=== PATIENT | female | born 1940 | race Caucasian/White ===

== ENCOUNTER 2022-01-08 10:23 | Inpatient (IN) | payer MEDICARE ==
[~2022-01-08] VITALS: Ht 167.6 cm; Wt 56.7 kg
[2022-01-08] MEDS ORDERED: TETANUS, DIPHTHERIA, PERTUSSIS VAC/PF 0.5ML (>10YR OLD) IM ONE (11:00)
[2022-01-08 11:29] LABS: BG BASE EXCESS 0.3 mmol/L (-2.0-2.0); BG DEOXYHEMOGLOBIN 3.7 % (0.0-5.0); BG FRACTION INSPIRED OXYGEN 21; BG HCO3 ACT 23.4 mmol/L (22.0-26.0); BG METHEMOGLOBIN 0.3 % (0.0-1.5); BG OXYGEN SATURATION 96.3 % (92.0-98.5); BG PCO2 33.6 mmHg (35.0-45.0); BG PO2 73.4 mmHg (75.0-100.0); BG SAMPLE SITE LEFT BRACHIAL; BG TOTAL HEMOGLOBIN 15.7 g/dL (12.0-18.0); BG VENT MODE ROOM AIR
[2022-01-08 12:00] LABS: HEMATOCRIT. 45.7 % (36.0-48.0); HEMOGLOBIN. 15.4 g/dL (12.0-16.0); MEAN CORPUSCULAR HEMOGLOBIN 31.2 pg (28.0-32.0); MEAN CORPUSCULAR VOLUME 92.4 fL (81.0-99.0); MEAN PLATELET VOLUME 7.1 fl (7.4-10.4); PLATELET 215 x1000/uL (130-400); RED BLOOD CELL COUNT 4.95 mill/uL (4.2-5.4); RED CELL DISTRIBUTION WIDTH 13.2 % (11.6-14.6)
[2022-01-08 12:36] LABS: CHLORIDE 102 mEq/L (98-107)
[2022-01-08 12:57] LABS: CREATINE KINASE 816 IU/L (26-192); ETHANOL BLOOD < 10 mg/dL
[2022-01-08 14:04] LABS: PLATELET ESTIMATE NORMAL
[2022-01-08] MEDS ORDERED: FUROSEMIDE 40MG/4ML VIAL IVP NR (14:30)
[2022-01-08] MEDS ORDERED: ASPIRIN 325MG EC TABLET PO NR (14:30)
[2022-01-08 20:00] VITALS: BP 106/61
[2022-01-08] MEDS ORDERED: HYDROCODONE/ACETAMINOPHEN 5/325MG TABLET PO PRN (20:00)
[2022-01-08] MEDS ORDERED: MORPHINE SULFATE 2 MG/ML CPJ (NOT FOR IM USE) IV PRN (20:00)
[2022-01-08] MEDS ORDERED: MAGNESIUM/ALUMINUM HYDROXIDE/SIMETHICONE 30ML UDC PO PRN (20:00)
[2022-01-08] MEDS ORDERED: ACETAMINOPHEN 325MG TABLET PO PRN ×2 (20:00)
[2022-01-08] MEDS ORDERED: CLONIDINE 0.1MG TABLET PO PRN (20:00)
[2022-01-08] MEDS ORDERED: IPRATROPIUM/ALBUTEROL 0.5-3(2.5)MG/3ML NEB HHN PRN (20:00)
[2022-01-08] MEDS ORDERED: GUAIFENESIN 200MG/10ML SUGAR FREE UDC PO PRN (20:00)
[2022-01-08] MEDS ORDERED: ONDANSETRON HCL 4MG/2ML INJ IV PRN (20:00)
[2022-01-08] MEDS: PANTOPRAZOLE 40MG DR TABLET PO SCH (21:30)
[2022-01-08 23:06] VITALS: BP 106/61
[2022-01-09] VITALS: BP 118/77
[2022-01-09 04:00] VITALS: BP 134/52
[2022-01-09 06:41] LABS: CHLORIDE 98 mEq/L (98-107)
[2022-01-09 06:46] LABS: BASOPHILS % 0.4 % (0.0-2.0); EOSINOPHILS % 0.1 % (0.0-5.0); HEMATOCRIT. 46.8 % (36.0-48.0); HEMOGLOBIN. 15.8 g/dL (12.0-16.0); LYMPHOCYTES % 26.3 % (20.0-50.0); MEAN CORPUSCULAR HEMOGLOBIN 30.9 pg (28.0-32.0); MEAN CORPUSCULAR VOLUME 91.5 fL (81.0-99.0); MEAN PLATELET VOLUME 7.7 fl (7.4-10.4); MONOCYTES % 12.7 % (2.0-8.0); NEUTROPHILS % 60.5 % (40.0-76.0); PLATELET 232 x1000/uL (130-400); RED BLOOD CELL COUNT 5.11 mill/uL (4.2-5.4)
[2022-01-09] MEDS ORDERED: LACTULOSE 20G/30ML UDC PO SCH (08:45)
[2022-01-09] MEDS: PANTOPRAZOLE 40MG DR TABLET PO SCH (10:23)
[2022-01-09] MEDS: ENOXAPARIN 40MG/0.4ML SYR SUBCUT SCH (10:24)
[2022-01-09] MEDS: AMLODIPINE 2.5MG TABLET PO SCH (11:00)
[2022-01-09 12:00] VITALS: BP 109/106
[2022-01-09] MEDS ORDERED: DEXT 5%/0.45% NACL 500ML 500 ML IV ONE (15:00)
[2022-01-09 16:00] VITALS: BP_SYST 101; BP_SYST 119; BP_SYST 93; BP_DIAS 45; BP_DIAS 50; BP_DIAS 62
[2022-01-09 20:38] VITALS: BP 139/88
[2022-01-09 20:45] LABS: CHLORIDE 97 mEq/L (98-107)
[2022-01-09] MEDS ORDERED: LACTULOSE 20G/30ML UDC PO PRN (21:00)
[2022-01-09] MEDS: ATORVASTATIN CALCIUM 20MG TABLET PO SCH (22:10)
[2022-01-10 00:13] VITALS: BP 140/59
[2022-01-10 04:00] VITALS: BP 131/66
[2022-01-10 06:35] LABS: BASOPHILS % 0.3 % (0.0-2.0); EOSINOPHILS % 0.6 % (0.0-5.0); HEMATOCRIT. 43.7 % (36.0-48.0); HEMOGLOBIN. 14.8 g/dL (12.0-16.0); LYMPHOCYTES % 26.9 % (20.0-50.0); MEAN CORPUSCULAR HEMOGLOBIN 30.8 pg (28.0-32.0); MEAN PLATELET VOLUME 7.7 fl (7.4-10.4); MONOCYTES % 11.9 % (2.0-8.0); NEUTROPHILS % 60.3 % (40.0-76.0); PLATELET 200 x1000/uL (130-400); RED CELL DISTRIBUTION WIDTH 13.2 % (11.6-14.6)
[2022-01-10] MEDS ORDERED: NALOXONE HCL 0.4MG/ML VIAL IV PRN (08:15)
[2022-01-10] MEDS ORDERED: DEXTROSE 50% WATER 50ML SYRINGE IV PRN (08:30)
[2022-01-10] MEDS ORDERED: POTASSIUM CHLORIDE 20MEQ TABLET SR PO SCH (09:00)
[2022-01-10] MEDS: FAMOTIDINE 20MG TABLET PO SCH (09:15)
[2022-01-10] MEDS: ENOXAPARIN 40MG/0.4ML SYR SUBCUT SCH (09:15)
[2022-01-10] MEDS: AMLODIPINE 2.5MG TABLET PO SCH (09:16)
[2022-01-10] MEDS: SODIUM CHLORIDE 0.9% 1,000 ML IV SCH ×2 (09:21→20:57)
[2022-01-10 12:00] VITALS: BP 96/65
[2022-01-10] MEDS: BLOOD SUGAR DIAGNOSTIC STRIP TEST SCH ×2 (12:40→20:47)
[2022-01-10] MEDS: INSULIN LISPRO 100 UNITS/ML SUBCUT SCH ×2 (13:10→20:47)
[2022-01-10] MEDS: ASPIRIN 81MG EC TABLET PO SCH (15:02)
[2022-01-10 20:00] VITALS: BP 140/58
[2022-01-10] MEDS: ATORVASTATIN CALCIUM 20MG TABLET PO SCH (20:55)
[2022-01-10] MEDS ORDERED: LORAZEPAM 0.5MG TABLET PO NR (22:15)
[2022-01-11] VITALS (7 sets, daily range): BP systolic 137–172; BP diastolic 59–70
[2022-01-11 00:21] LABS: CLARITY URINE CLEAR (CLEAR); COLOR URINE YELLOW (YELLOW); KETONES URINE NEGATIVE (NEGATIVE); LEUKOCYTE ESTERASE URINE NEGATIVE (NEGATIVE); NITRITE URINE NEGATIVE (NEGATIVE); OCCULT BLOOD URINE NEGATIVE (NEGATIVE); PH URINE 5.5 (4.5-8.0); PROTEIN URINE NEGATIVE (NEGATIVE); SPECIFIC GRAVITY URINE 1.009 (1.005-1.030); UROBILINOGEN URINE 0.2 E.U./dL (0.2-1.0)
[2022-01-11 00:35] LABS: *AMPHETAMINES SCREEN URINE NEGATIVE (NEGATIVE); *BARBITURATES SCREEN URINE NEGATIVE (NEGATIVE); *BENZODIAZEPINES SCREEN URINE NEGATIVE (NEGATIVE); *COCAINE SCREEN URINE NEGATIVE (NEGATIVE); CANNABINOID URINE SCREEN NEGATIVE (NEGATIVE); METHADONE URINE SCREEN NEGATIVE (NEGATIVE); OPIATES URINE SCREEN NEGATIVE (NEGATIVE); PHENCYCLIDINE URINE SCREEN NEGATIVE (NEGATIVE)
[2022-01-11 05:40] LABS: BASOPHILS % 0.5 % (0.0-2.0); HEMATOCRIT. 44.1 % (36.0-48.0); HEMOGLOBIN. 15.3 g/dL (12.0-16.0); LYMPHOCYTES % 34.6 % (20.0-50.0); MEAN CORPUSCULAR HEMOGLOBIN 31.7 pg (28.0-32.0); MEAN CORPUSCULAR VOLUME 91.5 fL (81.0-99.0); MEAN PLATELET VOLUME 7.6 fl (7.4-10.4); MONOCYTES % 13.6 % (2.0-8.0); NEUTROPHILS % 50.3 % (40.0-76.0); PLATELET 203 x1000/uL (130-400); RED BLOOD CELL COUNT 4.83 mill/uL (4.2-5.4); RED CELL DISTRIBUTION WIDTH 13.5 % (11.6-14.6)
[2022-01-11] MEDS: BLOOD SUGAR DIAGNOSTIC STRIP TEST SCH ×4 (07:40→20:53)
[2022-01-11] MEDS: INSULIN LISPRO 100 UNITS/ML SUBCUT SCH ×4 (08:10→20:53)
[2022-01-11 08:57] LABS: CHLORIDE 102 mEq/L (98-107)
[2022-01-11] MEDS ORDERED: ASPIRIN 81MG TABLET PO SCH (09:00)
[2022-01-11] MEDS ORDERED: AMLODIPINE 2.5MG TABLET PO SCH (09:00)
[2022-01-11] MEDS: ENOXAPARIN 40MG/0.4ML SYR SUBCUT SCH (09:35)
[2022-01-11] MEDS: FAMOTIDINE 20MG TABLET PO SCH (09:36)
[2022-01-11] MEDS: ASPIRIN 81MG EC TABLET PO SCH (09:36)
[2022-01-11] MEDS: AMLODIPINE 2.5MG TABLET PO SCH (09:36)
[2022-01-11 12:59] LABS: VITAMIN B12 SERUM 231 pg/mL (211-911)
[2022-01-11] MEDS ORDERED: CYANOCOBALAMIN 1000MCG/ML VIAL IM NR (15:00)
[2022-01-11] MEDS: SODIUM CHLORIDE 0.9% 1,000 ML IV SCH (15:23)
[2022-01-11] MEDS ORDERED: POTASSIUM CHLORIDE 20MEQ TABLET SR PO NR (15:45)
[2022-01-11] MEDS: ATORVASTATIN CALCIUM 20MG TABLET PO SCH (20:53)
[2022-01-12] VITALS: BP 151/80
[2022-01-12] MEDS: SODIUM CHLORIDE 0.9% 1,000 ML IV SCH ×2 (00:15→13:35)
[2022-01-12 04:00] VITALS: BP 135/58
[2022-01-12 07:31] LABS: BASOPHILS % 0.7 % (0.0-2.0); EOSINOPHILS % 2.7 % (0.0-5.0); HEMATOCRIT. 39.5 % (36.0-48.0); HEMOGLOBIN. 13.4 g/dL (12.0-16.0); LYMPHOCYTES % 45.2 % (20.0-50.0); MEAN CORPUSCULAR VOLUME 91.6 fL (81.0-99.0); MONOCYTES % 12.2 % (2.0-8.0); NEUTROPHILS % 39.2 % (40.0-76.0); PLATELET 197 x1000/uL (130-400); RED BLOOD CELL COUNT 4.31 mill/uL (4.2-5.4)
[2022-01-12 07:40] LABS: CHLORIDE 107 mEq/L (98-107)
[2022-01-12] MEDS: BLOOD SUGAR DIAGNOSTIC STRIP TEST SCH ×2 (07:40→13:30)
[2022-01-12 08:00] VITALS: BP 157/63
[2022-01-12] MEDS: INSULIN LISPRO 100 UNITS/ML SUBCUT SCH ×2 (08:10→13:10)
[2022-01-12] MEDS ORDERED: CYANOCOBALAMIN 100MCG TABLET PO SCH (08:10)
[2022-01-12] MEDS: ENOXAPARIN 40MG/0.4ML SYR SUBCUT SCH (10:11)
[2022-01-12] MEDS: ASPIRIN 81MG EC TABLET PO SCH (10:12)
[2022-01-12] MEDS: AMLODIPINE 2.5MG TABLET PO SCH (10:12)
[2022-01-12] MEDS: FAMOTIDINE 20MG TABLET PO SCH (10:12)
[2022-01-12 11:44] VITALS: BP 150/55
[2022-01-12] MEDS ORDERED: AMLO2.5T45 PO (13:10)
[2022-01-12] MEDS ORDERED: ATOR20TA PO (13:10)
[2022-01-12] MEDS ORDERED: ASPI-1406 PO (13:10)
[2022-01-12] MEDS ORDERED: MIDODRINE HCL 5MG TABLET PO SCH (13:30)
[2022-01-12 16:00] VITALS: BP_SYST 142; BP_SYST 168; BP_DIAS 60; BP_DIAS 94
[2022-01-12 16:44] VITALS: BP 135/80
== END 2022-01-12 17:16 | disposition home or self-care (01) | DRG 640 ==
LOC: ER 10:23 → 7WST 15:59 → EDBEDREQ 16:08 → ENRESERV 17:24
PROVIDERS: ADMIT Internal Medicine; ATTEND Internal Medicine
PROC: 4A00X4Z Measurement of Central Nervous Electrical Activity, External Approach (ICD-10-PCS; principal; 2022-01-12)
DX: E86.0 Dehydration (principal); G93.41 Metabolic encephalopathy; I95.1 Orthostatic hypotension; I11.0 Hypertensive heart disease with heart failure; I50.9 Heart failure, unspecified; J32.0 Chronic maxillary sinusitis; J44.9 Chronic obstructive pulmonary disease, unspecified; M47.9 Spondylosis, unspecified; M48.00 Spinal stenosis, site unspecified; S01.81XA Laceration without foreign body of other part of head, initial encounter; R29.6 Repeated falls; E78.5 Hyperlipidemia, unspecified; W18.39XA Other fall on same level, initial encounter; F41.1 Generalized anxiety disorder; R62.7 Adult failure to thrive; Z87.891 Personal history of nicotine dependence; Z90.710 Acquired absence of both cervix and uterus; Z79.899 Other long term (current) drug therapy; Z82.49 Family history of ischemic heart disease and other diseases of the circulatory system; Z83.3 Family history of diabetes mellitus; Y93.89 Activity, other specified; Y92.89 Other specified places as the place of occurrence of the external cause; Y99.8 Other external cause status
CPT/HCPCS: 36415; 36600; 70551; 71045; 80048; 80053; 80061; 80305; 80307; 80320; 80329; 81003; 82140; 82375; 82550; 82607; 82805; 82962; 83036; 83605; 83735; 83880; 84100; 84145; 84443; 84484; 85025; 86850; 86900; 90715; 93005; 93306; 93880; 93970; 95816; 97116; 97162; 97166; 99285; C1893; J1650; J1940; J3420; J7030; G0480